=== PATIENT | male | born 1975 ===

== ENCOUNTER 2019-07-24 14:52 | Outpatient (CLI) | payer OTHER ==
--- NOTE | 2019-07-24 15:44 | ULT ---
BILATERAL TESTICULAR ULTRASOUND WITH MOE SCALE AND COLOR FLOW AND SPECTRAL DOPPLER IMAGING: Date: 07/24/19 HISTORY: Left testicular lump and pain. FINDINGS: The right testis measures 4.6 x 2.2 x 2.5 cm. The left testis measures 4.5 x 2.1 x 2.9 cm. No testicu lar mass or microlithiasis is seen. Symmetric blood flow is seen to both testes and epididymides. The epididymides also have a normal appearance. Small bilateral hydroceles are present. IMPRESSION: No evidence of testicular mass, torsion, or epididymo-orchitis on either side. POS: [facility]
== END 2019-07-24 14:53 | disposition home or self-care (01) ==
LOC: BICULT 14:52
PROVIDERS: ATTEND Family Medicine
DX: N50.89 Other specified disorders of the male genital organs (principal)
CPT/HCPCS: 76870; 93976